=== PATIENT | female | born 1930 | race Caucasian/White ===

== ENCOUNTER 2017-09-25 10:10 | Day surgery (SDC) | payer MEDICARE, BC ==
[2017-09-22 11:16] LABS: HEMATOCRIT 36.9 % (36.0-47.0); HEMOGLOBIN 12.4 g/dL (12.0-15.5); HGB HCT DIFFERENCE 0.3; MEAN CORPUSCULAR HEMOGLOBIN 29.1 pg (27.0-33.4); MEAN CORPUSCULAR HGB CONC 33.6 g/dL (32.0-36.0); MEAN CORPUSCULAR VOLUME 87 fl (80-97); RED BLOOD COUNT 4.25 10^6/uL (3.72-5.28); RED CELL DISTRIBUTION WIDTH 14.1 % (11.5-14.0); WHITE BLOOD COUNT 5.4 10^3/uL (4.0-10.5)
[2017-09-22 11:17] LABS: APPEARANCE,URINE CLOUDY; BILIRUBIN,URINE NEGATIVE (NEGATIVE); GLUCOSE, URINE NEGATIVE (NEGATIVE); KETONES,URINE NEGATIVE (NEGATIVE); LEUKOCYTE ESTERASE,URINE LARGE (NEGATIVE); NITRITE,URINE NEGATIVE (NEGATIVE); PROTEIN,URINE NEGATIVE (NEGATIVE); URINE SPECIFIC GRAVITY 1.005; UROBILINOGEN,URINE NEGATIVE mg/dL (<2.0)
[2017-09-22 11:35] LABS: ANION GAP 15 (5-19); BLOOD UREA NITROGEN 17 mg/dL (7-20); CARBON DIOXIDE 24 mmol/L (22-30); CHLORIDE 104 mmol/L (98-107); CREATININE RESULT 0.97 mg/dL (0.52-1.25); GLUCOSE 82 mg/dL (75-110); POTASSIUM 4.2 mmol/L (3.6-5.0); SODIUM 142.5 mmol/L (137-145)
--- NOTE | 2017-09-22 12:13 | RADIOLOGY REPORT (SQ) ---
EXAM DESCRIPTION: CHEST PA/LATERAL COMPLETED DATE/TIME: 09/22/2017 12:00 pm REASON FOR STUDY: PRE OP COMPARISON: None. EXAM PARAMETERS: NUMBER OF VIEWS: two views TECHNIQUE: Digital Frontal and Lateral radiographic views of the chest acquired. RADIATION DOSE: NA LIMITATIONS: none FINDINGS: LUNGS AND PLEURA: No acute infiltrates. No pleural effusion or pneumothorax. Calcified g ranuloma periphery left upper lobe. MEDIASTINUM AND HILAR STRUCTURES: No masses or contour abnormalities. HEART AND VASCULAR STRUCTURES: Moderate cardiomegaly new. Heavily calcified mitral annulus BONES: Osteoporotic. No thoracic compression deformity HARDWARE: Left-sided dual lead pacemaker OTHER: No other significant finding. IMPRESSION: Cardiomegaly and pacemaker. No acute findings TECHNICAL DOCUMENTATION: JOB ID: [id number] [employer]- All Rights Reserved
--- NOTE | 2017-09-22 22:44 | EKG REPORT ---
SEVERITY:- ABNORMAL ECG - ATRIAL-PACED RHYTHM : Confirmed by: Sourav Coffey 22-Sep-2017 22:42:32
[~2017-09-25 10:10] MED LIST: CEFAZOLIN 1 GM/D5W RTU 1 GM/50 ML RTUPB IV PRN; LACTATED RINGERS 1000 ML IV PRN; LIDOCAINE 0.5% INJ-PF (5 MG/ML) 50 ML SDV SUBCUT PRN
[2017-09-25 11:01] LABS: PROTHROMBIN TIME 14.3 SEC (11.4-15.4)
[2017-09-25 11:02] LABS: PARTIAL THROMBOPLASTIN TIME 31.9 SEC (23.5-35.8)
[2017-09-25] MEDS ORDERED: FENTANYL CITRATE INJ/PF 100 MCG/2 ML AMPUL ONE (11:54)
[2017-09-25] MEDS ORDERED: PROPOFOL INJ 200 MG/20 ML VIAL IV ONE (11:54)
[2017-09-25] MEDS ORDERED: DEXMEDETOMIDINE INJ 80 MCG/20 ML VIAL IV ONE (11:54)
[2017-09-25] MEDS ORDERED: CEFAZOLIN INJ 1 GM VIAL ONE (12:58)
[2017-09-25] MEDS ORDERED: FENTANYL CITRATE INJ/PF 100 MCG/2 ML AMPUL IV PRN ×3 (13:27)
[2017-09-25] MEDS ORDERED: PROMETHAZINE HCL INJ 25 MG/1 ML VIAL IV PRN (13:27)
[2017-09-25] MEDS ORDERED: DIPHENHYDRAMINE HCL 50 MG/ML VIAL IV PRN (13:27)
[2017-09-25] MEDS ORDERED: MEPERIDINE HCL/PF INJ 25 MG/1 ML DISP.SYRIN IV PRN (13:27)
[2017-09-25] MEDS ORDERED: OXYCODONE-ACETAMINOPHEN 5-325 MG TABLET PO PRN (13:57)
[2017-09-25] MEDS ORDERED: PROMETHAZINE HCL INJ 25 MG/1 ML VIAL IM PRN (13:58)
[2017-09-25] MEDS ORDERED: LACTATED RINGERS 1000 ML IV PRN (14:00)
[2017-09-25] MEDS ORDERED: IBUPROFEN 800 MG TABLET PO SCH (14:00)
--- NOTE | 2017-09-25 14:18 | OPERATIVE REPORT E ---
Operative Report NAME: SNEHAL MAN : 1930 AGE: 87Y DATE OF SURGERY: 09/25/2017 ROOM: PREOPERATIVE DIAGNOSIS: Endometrial hyperplasia. POSTOPERATIVE DIAGNOSIS: Endometrial hyperplasia. PROCEDURE: Diagnostic hysteroscopy D and C. SURGEON: NAJMA SANDERSON M.D. ANESTHESIA: LMAC. COMPLICATIONS: None. FINDINGS: Pyometra, stenotic cervix, endometrial hyperplasia noted on hysteroscopy. Uterus was sounded to 11 cm once the cervix had been opened. INDICATIONS FOR PROCEDURE: Patient had a fluid-filled collection noted in her uterus on incidental study. Outpatient attempts at biopsy were unsuccessful due to the stenotic cervix. Ultrasound demonstrated endometrial excrescences along with endometrial fluid noted. No adnexal masses were appreciated. The usual risks of bleeding, infection, anesthesia and damage to organs or tissue had been discussed and the patient understood. PROCEDURE: Patient was taken to the operating room and placed in a modified lithotomy position, adequate anesthesia was ascertained, prepped and draped in the usual manner for a D and C hysteroscopy. The cervix was slowly and methodically dilated to admit the operative hysteroscope. Profuse amount of dark odonnell pyometrial fluid was encountered and a large amount of it was sent to cytology. The bladder had been left undrained prior to the procedure and surgical time out had been performed. Once the pyometrium was drained hysteroscopy ensued. The endometrial hyperplasia was encountered on hysteroscopy and endometrial sampling was performed x4 and a cervical specimen as well sent. At completion of this, bleeding was nil. Patient was awakened and taken to recovery in stable condition. DICTATING PHYSICIAN: NAJMA SANDERSON M.D. [id number] Y#: [id number] ID: [id number] JOB#: [id number] ACCT: [id number] cc:NAJMA SANDERSON M.D. >
[2017-09-25 18:15] VITALS: BP 172/74
== END 2017-09-25 15:00 | disposition home or self-care (01) ==
LOC: OROUT 10:10
PROVIDERS: ATTEND Specialist
PROC: 0UDB8ZX Extraction of Endometrium, Via Natural or Artificial Opening Endoscopic, Diagnostic (ICD-10-PCS; principal; 2017-09-25 12:45)
DX: C54.1 Malignant neoplasm of endometrium (principal); I48.91 Unspecified atrial fibrillation; I10 Essential (primary) hypertension; K21.9 Gastro-esophageal reflux disease without esophagitis; M19.90 Unspecified osteoarthritis, unspecified site; Z79.01 Long term (current) use of anticoagulants; Z79.82 Long term (current) use of aspirin; Z79.899 Other long term (current) drug therapy; Z95.0 Presence of cardiac pacemaker; Z88.2 Allergy status to sulfonamides
CPT/HCPCS: 93005; 86900; 86901; 36415 ×2; 86850; 84132; 85027; 85610; 85730; 80048; 81001; 88162; 88305 ×2; 71020; 93010; 58558; J0690; J2704; J3490; 952; J3010